=== PATIENT | female | born 1945 | race Caucasian/White ===

== ENCOUNTER 2017-10-12 15:16 | Inpatient (IN) ==
--- NOTE | 2017-10-12 15:49 | Emergency Department Note ---
Disposition Clinical Impression: Acute kidney injury superimposed on chronic kidney disease Urinary tract infection Qualifiers: Urinary tract infection type: acute cystitis Hematuria presence: with hematuria Qualified Code(s): N30.01 - Acute cystitis with hematuria Altered mental status Qualifiers: Altered mental status type: unspecified Qualified Code(s): R41.82 - Altered mental status, unspecified Disposition: Admitted As Inpatient Condition: Fair Referrals: Josephine Haywood, [employer] [Primary Care Provider] - Forms: ED Satisfaction Letter, Work/School Release Time of Disposition: 17:50 General Adult HPI - General Chief complaint: ED General Medical Stated complaint: General illness Time Seen by Provider: 10/12/17 15:28 Source: EMS Limitations: physical limitation Nursing Notes Reviewed: Yes Vital Signs Reviewed: Yes - History of Present Illness HPI Narrative: 72-year-old female is brought by EMS for concerns of failure to thrive by family members. Family members had contacted EMS because the patient was found to have laid on the couch for the past really days without moving. According to the patient's nurse, the patient was found lying in her own urine. Upon her arrival, she is very disheveled and unkempt. She does complain of some worsening confusion over the course of the past 3 days as well. She complains of some suprapubic abdominal discomfort but denies any urinary symptoms or fever /chills. She denies any chest pain or shortness of breath. She denies any falls or trauma. Onset (ago): day(s) (3) Location: abdomen Pain Scale: 5 Quality: aching, dull Improves with: nothing Worsens with: nothing Associated symptoms: Reports: confusion. Denies: chest pain, cough, fever/ chills, nausea/vomiting, shortness of breath Treatments Prior to Arrival: none - Related Data Home Medications Medication Instructions Recorded Confirmed Aspirin Enteric Coated [Aspirin EC] 81 mg PO DAILY 02/19/15 05/31/16 Budesonide/Formoterol 160/4.5 2 puff IH BID 02/19/15 05/31/16 [Symbicort] CloNIDine HCl [Kapvay] 0.1 mg PO TID 02/19/15 05/31/16 Losartan [Cozaar] 100 mg PO DAILY 02/19/15 05/31/16 clonazePAM [Clonazepam] 0.5 mg PO BID PRN 02/19/15 05/31/16 Ventolin Hfa 2 inh PO Q4H PRN 02/28/16 05/31/16 Previous Rx's Medication Instructions Recorded Ipratropium/Albuterol Neb [Duoneb] 3 ml IH QIDR 30 Days inhsol 02/21/15 Verapamil ER (24 HR) [Calan SR] 180 mg PO HS #0 02/21/15 Allergies Allergy/AdvReac Type Severity Reaction Status Date / Time No Known Allergies Allergy Verified 10/24/15 11:07 All systems ED: reviewed and negative except as stated. Constitutional: Denies: fever, chills, weakness, weight change Eyes: Denies: eye pain, eye discharge, vision change ENT ED: Denies: ear pain, throat pain, dental pain, hearing loss, epistaxis, congestion, dysphagia Cardiovascular: Denies: chest pain, palpitations, dyspnea on exertion, edema, syncope Respiratory: Denies: cough, dyspnea, wheezes, hemoptysis, stridor Gastrointestinal: Reports: as per HPI, abdominal pain. Denies: nausea, vomiting , diarrhea, constipation, hematemesis, melena, hematochezia Genitourinary: Denies: dysuria, frequency, hematuria, discharge Musculoskeletal: Denies: back pain, neck pain, arthralgia, myalgia Integumentary: Denies: rash, abrasion, lesions Neurological: Denies: headache, weakness, numbness, paresthesias, confusion, abnormal gait, vertigo Psychiatric: Denies: anxiety, depression, suicidal thoughts, homicidal thoughts , auditory hallucinations, visual hallucinations Endocrine: Denies: fatigue Hematological/Lymphatic: Denies: easy bleeding, easy bruising Allergic/Immunologic: Denies: facial swelling, urticaria Past Medical History - Past Medical History Attestation: Yes The following information was validated with the patient. Source: patient, nursing notes reviewed Medical history: Reports: COPD, coronary artery disease, hypertension, renal disease, other Surgical history: Reports: cholecystectomy Psychiatric history: Reports: no psych history TRAFFIC MANAGER history: Reports: no TRAFFIC MANAGER history - Social History Smoking Status: Current every day smoker Smokeless Tobacco Status: No Alcohol use: Reports: none Drug use: Reports: none Physical Exam - General Limitations: physical limitation General appearance: alert, in no apparent distress - Head Head exam: atraumatic, normocephalic, normal inspection - Eye Eye exam: Present: normal appearance, PERRL, EOMI. Absent: nystagmus - ENT ENT exam: mucous membranes dry - Neck Neck exam: Present: normal inspection, full ROM, trachea midline - Chest Chest inspection: Present: normal inspection, symmetric chest wall rise - Respiratory Respiratory exam: Present: normal lung sounds bilaterally. Absent: respiratory distress, wheezes, stridor, accessory muscle use, prolonged expiratory phase - Cardiovascular Cardiovascular exam: Present: regular rate, normal rhythm, normal heart sounds - Abdominal Exam Abdominal exam: Present: soft, tenderness, normal bowel sounds. Absent: distention, guarding, rebound, rigidity Abdominal tenderness: Present: suprapubic, mild - Extremities Exam Extremities exam: Present: normal inspection, full ROM. Absent: tenderness, pedal edema - Neurological Exam Neurological exam: Present: alert, oriented X3 - Psychiatric Psychiatric exam: Present: normal affect, normal mood - Skin Skin exam: Present: warm, dry, intact, normal color Course Course Narrative: 087: I spoke with Dr. Smith of the hospital service who has agreed to accept the patient for further evaluation of her nitrite positive urinary tract infection, and altered mental status along with acute kidney injury. I discussed this plan with Dr. De La Torre, ED attending. He has had a [id number] evaluation with patient, reviewed her laboratory and radiology workup, and agrees with this plan. Vital Signs Temperature 97.5 F L 10/12/17 15:24 Pulse Rate 97 10/12/17 15:24 Respiratory Rate 20 10/12/17 15:24 Blood Pressure 143/59 10/12/17 15:24 O2 Sat by Pulse Oximetry 98 10/12/17 15:24 Temperature 97.5 F L 10/12/17 15:24 Pulse Rate 97 10/12/17 15:24 Respiratory Rate 20 10/12/17 15:24 Blood Pressure 143/59 10/12/17 15:24 O2 Sat by Pulse Oximetry 98 10/12/17 15:24 Oxygen Delivery Oxygen Delivery Nasal Cannula Medical Decision Making - Medical Records Medical records reviewed: Yes I reviewed the patient's medical records. - Lab Data Lab results reviewed: Yes I reviewed the patient's lab results. Lab results narrative: Laboratory Last Values WBC 13.9 K/mcL (4.3-11.1) H 10/12/17 16:10 RBC 5.34 M/mcL (3.82-4.97) H 10/12/17 16:10 Hgb 15.5 g/dL (11.5-15.4) H 10/12/17 16:10 Hct 48.6 % (35.3-44.9) H 10/12/17 16:10 MCV 91.0 fL (83.0-100.0) 10/12/17 16:10 MCH 29.0 pg (28.0-33.3) 10/12/17 16:10 MCHC 31.9 g/dL (31.6-35.5) 10/12/17 16:10 RDW 14.4 % (11.5-14.5) 10/12/17 16:10 Plt Count 366 K/mcL (140-400) 10/12/17 16:10 MPV 10.3 fL (9.4-12.4) 10/12/17 16:10 Seg Neutrophils % 74.0 % 10/12/17 16:10 Band Neutrophils % 10.0 % (0-4) H 10/12/17 16:10 Lymphocytes % 14.0 % 10/12/17 16:10 Monocytes % 2.0 % 10/12/17 16:10 Neutrophils # 11.7 K/mcL (1.6-8.9) H 10/12/17 16:10 Lymphocytes # 2.0 K/mcL (0.6-4.6) 10/12/17 16:10 Monocytes # 0.3 K/mcL (0.0-1.3) 10/12/17 16:10 Platelet Estimate Normal (Normal) 10/12/17 16:10 PT 12.8 Seconds (9.4-12.1) H 10/12/17 16:10 INR 1.1 10/12/17 16:10 APTT 30.8 Seconds (26.0-36.0) 10/12/17 16:10 Sodium 141 mEq/L (136-145) 10/12/17 16:10 Potassium 3.5 mEq/L (3.5-5.1) 10/12/17 16:10 Chloride 100 mEq/L (98-107) 10/12/17 16:10 Carbon Dioxide 28 mEq/L (23-29) 10/12/17 16:10 BUN 71 mg/dL (8-23) H 10/12/17 16:10 Creatinine 1.74 mg/dL (0.60-1.20) H 10/12/17 16:10 Est GFR ( Amer) 35 (> 60) L 10/12/17 16:10 Est GFR (Non-Af Amer) 29 (> 60) L 10/12/17 16:10 BUN/Creatinine Ratio 41 (6-26) H 10/12/17 16:10 Glucose 113 mg/dL (70-105) H 10/12/17 16:10 Calculated Osmolality 314 (280-300) H 10/12/17 16:10 Calcium 11.5 mg/dL (8.6-10.3) H 10/12/17 16:10 Total Bilirubin 0.3 mg/dL (0.3-1.0) 10/12/17 16:10 Direct Bilirubin 0.2 mg/dL (0.0-0.2) 10/12/17 16:10 Indirect Bilirubin 0.1 mg/dL (0.0-1.2) 10/12/17 16:10 AST 32 Units/L (13-39) 10/12/17 16:10 ALT 40 Units/L (7-52) 10/12/17 16:10 Alkaline Phosphatase 137 Units/L (34-104) H 10/12/17 16:10 Ammonia 37 mcmol/L (16-53) 10/12/17 16:10 Troponin I < 0.03 ng/mL (< 0.04) 10/12/17 16:10 Serum Total Protein 8.3 g/dL (6.4-8.9) 10/12/17 16:10 Albumin 4.2 g/dL (3.5-5.7) 10/12/17 16:10 Globulin 4.1 g/dL (2.4-3.5) H 10/12/17 16:10 Albumin/Globulin Ratio 1.0 (1.1-2.2) L 10/12/17 16:10 Lipase 29 Units/L (11-82) 10/12/17 16:10 Urine Color Yellow (Yellow) 10/12/17 17:19 Urine Clarity Turbid (Clear) A 10/12/17 17:19 Urine pH 5.5 pH Units (5.0-8.0) 10/12/17 17:19 Ur Specific Bradley 1.018 (1.010-1.025) 10/12/17 17:19 Urine Protein 30 mg/dL (Neg-Trace) H 10/12/17 17:19 Urine Glucose (UA) Normal mg/dL (Normal) 10/12/17 17:19 Urine Ketones Negative mg/dL (Negative) 10/12/17 17:19 Urine Blood Large (Negative) H 10/12/17 17:19 Urine Nitrite Positive (Negative) A 10/12/17 17:19 Urine Bilirubin Negative (Negative) 10/12/17 17:19 Urine Urobilinogen Normal mg/dL (Normal) 10/12/17 17:19 Ur Leukocyte Esterase Large (Negative) H 10/12/17 17:19 Urine Microscopic RBC 50-100 per hpf (0-3) H 10/12/17 17:19 Urine Microscopic WBC TNTC per hpf (0-3) H 10/12/17 17:19 Ur Squamous Epith Cells Many per lpf (None-Few) H 10/12/17 17:19 Urine Bacteria Many per hpf (None-Few) H 10/12/17 17:19 Hyaline Casts None Seen per lpf (None-Few) 10/12/17 17:19 Ur Culture Indicated? NO. (NO) A 10/12/17 17:19 Urine Opiates Screen Negative ng/mL (Detmwo=975) 10/12/17 15:53 Ur Barbiturates Screen Negative ng/mL (Wkvknt=237) 10/12/17 15:53 Ur Phencyclidine Scrn Negative ng/mL (Cutoff=25) 10/12/17 15:53 Ur Amphetamines Screen Negative ng/mL (Ezeilj=8887) 10/12/17 15:53 U Benzodiazepines Scrn Negative ng/mL (Oudnrt=493) 10/12/17 15:53 Urine Cocaine Screen Negative ng/mL (Cutoff= 300) 10/12/17 15:53 U Marijuana (THC) Screen Negative ng/mL (Cutoff = 50) 10/12/17 15:53 Ur Drug Screen Interp See Below 10/12/17 15:53 Ethyl Alcohol < 10 mg/dL (Less than 10) 10/12/17 16:10 Result diagrams: 10/12/17 16:10 10/12/17 16:10 Lab Results 10/12/17 10/12/17 10/12/17 Range/Units 15:53 16:10 16:10 WBC 13.9 H (4.3-11.1) K/mcL RBC 5.34 H (3.82-4.97) M/mcL Hgb 15.5 H (11.5-15.4) g/dL Hct 48.6 H (35.3-44.9) % MCV 91.0 (83.0-100.0) fL MCH 29.0 (28.0-33.3) pg MCHC 31.9 (31.6-35.5) g/dL RDW 14.4 (11.5-14.5) % Plt Count 366 (140-400) K/mcL MPV 10.3 (9.4-12.4) fL Seg Neutrophils % 74.0 % Band Neutrophils % 10.0 H (0-4) % Lymphocytes % 14.0 % Monocytes % 2.0 % Neutrophils # 11.7 H (1.6-8.9) K/mcL Lymphocytes # 2.0 (0.6-4.6) K/mcL Monocytes # 0.3 (0.0-1.3) K/mcL Platelet Estimate Normal (Normal) PT 12.8 H (9.4-12.1) Seconds INR 1.1 APTT 30.8 (26.0-36.0) Seconds Sodium (136-145) mEq/L Potassium (3.5-5.1) mEq/L Chloride (98-107) mEq/L Carbon Dioxide (23-29) mEq/L BUN (8-23) mg/dL Creatinine (0.60-1.20) mg/dL Est GFR ( Amer) (> 60) Est GFR (Non-Af Amer) (> 60) BUN/Creatinine Ratio (6-26) Glucose (70-105) mg/dL Calculated Osmolality (280-300) Calcium (8.6-10.3) mg/dL Total Bilirubin (0.3-1.0) mg/dL Direct Bilirubin (0.0-0.2) mg/dL Indirect Bilirubin (0.0-1.2) mg/dL AST (13-39) Units/L ALT (7-52) Units/L Alkaline Phosphatase (34-104) Units/L Ammonia (16-53) mcmol/L Troponin I (< 0.04) ng/mL Serum Total Protein (6.4-8.9) g/dL Albumin (3.5-5.7) g/dL Globulin (2.4-3.5) g/dL Albumin/Globulin Ratio (1.1-2.2) Lipase (11-82) Units/L Urine Color (Yellow) Urine Clarity (Clear) Urine pH (5.0-8.0) pH Units Ur Specific Bradley (1.010-1.025) Urine Protein (Neg-Trace) mg/dL Urine Glucose (UA) (Normal) mg/dL Urine Ketones (Negative) mg/dL Urine Blood (Negative) Urine Nitrite (Negative) Urine Bilirubin (Negative) Urine Urobilinogen (Normal) mg/dL Ur Leukocyte Esterase (Negative) Urine Microscopic RBC (0-3) per hpf Urine Microscopic WBC (0-3) per hpf Ur Squamous Epith Cells (None-Few) per lpf Urine Bacteria (None-Few) per hpf Hyaline Casts (None-Few) per lpf Ur Culture Indicated? (NO) Urine Opiates Screen Negative (Nbtbxf=293) ng/mL Ur Barbiturates Screen Negative (Bxtchm=480) ng/mL Ur Phencyclidine Scrn Negative (Cutoff=25) ng/mL Ur Amphetamines Screen Negative (Kavbmb=2868) ng/mL U Benzodiazepines Scrn Negative (Efgxyk=632) ng/mL Urine Cocaine Screen Negative (Cutoff= 300) ng/mL U Marijuana (THC) Screen Negative (Cutoff = 50) ng/mL Ur Drug Screen Interp See Below Ethyl Alcohol (Less than 10) mg/dL 10/12/17 10/12/17 10/12/17 Range/Units 16:10 16:10 16:10 WBC (4.3-11.1) K/mcL RBC (3.82-4.97) M/mcL Hgb (11.5-15.4) g/dL Hct (35.3-44.9) % MCV (83.0-100.0) fL MCH (28.0-33.3) pg MCHC (31.6-35.5) g/dL RDW (11.5-14.5) % Plt Count (140-400) K/mcL MPV (9.4-12.4) fL Seg Neutrophils % % Band Neutrophils % (0-4) % Lymphocytes % % Monocytes % % Neutrophils # (1.6-8.9) K/mcL Lymphocytes # (0.6-4.6) K/mcL Monocytes # (0.0-1.3) K/mcL Platelet Estimate (Normal) PT (9.4-12.1) Seconds INR APTT (26.0-36.0) Seconds Sodium 141 (136-145) mEq/L Potassium 3.5 (3.5-5.1) mEq/L Chloride 100 (98-107) mEq/L Carbon Dioxide 28 (23-29) mEq/L BUN 71 H (8-23) mg/dL Creatinine 1.74 H (0.60-1.20) mg/dL Est GFR ( Amer) 35 L (> 60) Est GFR (Non-Af Amer) 29 L (> 60) BUN/Creatinine Ratio 41 H (6-26) Glucose 113 H (70-105) mg/dL Calculated Osmolality 314 H (280-300) Calcium 11.5 H (8.6-10.3) mg/dL Total Bilirubin 0.3 0.4 (0.3-1.0) mg/dL Direct Bilirubin 0.2 (0.0-0.2) mg/dL Indirect Bilirubin 0.1 (0.0-1.2) mg/dL AST 32 32 (13-39) Units/L ALT 40 41 (7-52) Units/L Alkaline Phosphatase 137 H 135 H (34-104) Units/L Ammonia 37 (16-53) mcmol/L Troponin I < 0.03 < 0.03 (< 0.04) ng/mL Serum Total Protein 8.3 8.3 (6.4-8.9) g/dL Albumin 4.2 4.2 (3.5-5.7) g/dL Globulin 4.1 H 4.1 H (2.4-3.5) g/dL Albumin/Globulin Ratio 1.0 L 1.0 L (1.1-2.2) Lipase 29 (11-82) Units/L Urine Color (Yellow) Urine Clarity (Clear) Urine pH (5.0-8.0) pH Units Ur Specific Bradley (1.010-1.025) Urine Protein (Neg-Trace) mg/dL Urine Glucose (UA) (Normal) mg/dL Urine Ketones (Negative) mg/dL Urine Blood (Negative) Urine Nitrite (Negative) Urine Bilirubin (Negative) Urine Urobilinogen (Normal) mg/dL Ur Leukocyte Esterase (Negative) Urine Microscopic RBC (0-3) per hpf Urine Microscopic WBC (0-3) per hpf Ur Squamous Epith Cells (None-Few) per lpf Urine Bacteria (None-Few) per hpf Hyaline Casts (None-Few) per lpf Ur Culture Indicated? (NO) Urine Opiates Screen (Xuamjl=077) ng/mL Ur Barbiturates Screen (Frxvif=708) ng/mL Ur Phencyclidine Scrn (Cutoff=25) ng/mL Ur Amphetamines Screen (Ivnriz=9081) ng/mL U Benzodiazepines Scrn (Ycbbmv=332) ng/mL Urine Cocaine Screen (Cutoff= 300) ng/mL U Marijuana (THC) Screen (Cutoff = 50) ng/mL Ur Drug Screen Interp Ethyl Alcohol < 10 (Less than 10) mg/dL 10/12/17 Range/Units 17:19 WBC (4.3-11.1) K/mcL RBC (3.82-4.97) M/mcL Hgb (11.5-15.4) g/dL Hct (35.3-44.9) % MCV (83.0-100.0) fL MCH (28.0-33.3) pg MCHC (31.6-35.5) g/dL RDW (11.5-14.5) % Plt Count (140-400) K/mcL MPV (9.4-12.4) fL Seg Neutrophils % % Band Neutrophils % (0-4) % Lymphocytes % % Monocytes % % Neutrophils # (1.6-8.9) K/mcL Lymphocytes # (0.6-4.6) K/mcL Monocytes # (0.0-1.3) K/mcL Platelet Estimate (Normal) PT (9.4-12.1) Seconds INR APTT (26.0-36.0) Seconds Sodium (136-145) mEq/L Potassium (3.5-5.1) mEq/L Chloride (98-107) mEq/L Carbon Dioxide (23-29) mEq/L BUN (8-23) mg/dL Creatinine (0.60-1.20) mg/dL Est GFR ( Amer) (> 60) Est GFR (Non-Af Amer) (> 60) BUN/Creatinine Ratio (6-26) Glucose (70-105) mg/dL Calculated Osmolality (280-300) Calcium (8.6-10.3) mg/dL Total Bilirubin (0.3-1.0) mg/dL Direct Bilirubin (0.0-0.2) mg/dL Indirect Bilirubin (0.0-1.2) mg/dL AST (13-39) Units/L ALT (7-52) Units/L Alkaline Phosphatase (34-104) Units/L Ammonia (16-53) mcmol/L Troponin I (< 0.04) ng/mL Serum Total Protein (6.4-8.9) g/dL Albumin (3.5-5.7) g/dL Globulin (2.4-3.5) g/dL Albumin/Globulin Ratio (1.1-2.2) Lipase (11-82) Units/L Urine Color Yellow (Yellow) Urine Clarity Turbid A (Clear) Urine pH 5.5 (5.0-8.0) pH Units Ur Specific Bradley 1.018 (1.010-1.025) Urine Protein 30 H (Neg-Trace) mg/dL Urine Glucose (UA) Normal (Normal) mg/dL Urine Ketones Negative (Negative) mg/dL Urine Blood Large H (Negative) Urine Nitrite Positive A (Negative) Urine Bilirubin Negative (Negative) Urine Urobilinogen Normal (Normal) mg/dL Ur Leukocyte Esterase Large H (Negative) Urine Microscopic RBC 50-100 H (0-3) per hpf Urine Microscopic WBC TNTC H (0-3) per hpf Ur Squamous Epith Cells Many H (None-Few) per lpf Urine Bacteria Many H (None-Few) per hpf Hyaline Casts None Seen (None-Few) per lpf Ur Culture Indicated? NO. A (NO) Urine Opiates Screen (Vodwwt=393) ng/mL Ur Barbiturates Screen (Mvwxgn=865) ng/mL Ur Phencyclidine Scrn (Cutoff=25) ng/mL Ur Amphetamines Screen (Sayeca=9172) ng/mL U Benzodiazepines Scrn (Uraznf=020) ng/mL Urine Cocaine Screen (Cutoff= 300) ng/mL U Marijuana (THC) Screen (Cutoff = 50) ng/mL Ur Drug Screen Interp Ethyl Alcohol (Less than 10) mg/dL - Radiology Data Radiology results reviewed: Yes I reviewed the patient's radiology results. Chest X-Ray 10/12/17 15:50 IMPRESSION: Clear lungs. No acute abnormality. Mild bullous changes. D/ / Jordan Villegas MD / Jordan Villegas MD Interpreting Provider: Jordan Villegas MD Head CT 10/12/17 15:51 IMPRESSION: No acute intracranial abnormality. Suspected acute right mastoiditis. Minimal cerebral atrophy. No significant ischemic changes. D/ / Jordan Villegas MD / Jordan Villegas MD Interpreting Provider: Jordan Villegas MD - EKG Data EKG #1 EKG attestation: Yes I reviewed and interpreted this EKG. EKG results narrative: EKG reviewed by Dr. De La Torre as well. EKG shows sinus rhythm with first-degree AV block at a rate of 98 beats per minute. WA interval 230, QRS duration 81, QT /QTc interval 3-1/376. No ectopy noted. No ST elevation.
[2017-10-12] MEDS ORDERED: 0.9 % Sodium Chloride 1,000 ML IVC ONE (15:50)
[2017-10-12 16:32] LABS: Hematocrit 48.6 % (35.3-44.9); Hemoglobin 15.5 g/dL (11.5-15.4); Mean Corpuscular HGB Conc 31.9 g/dL (31.6-35.5); Mean Platelet Volume 10.3 fL (9.4-12.4); Platelet Count 366 K/mcL (140-400); Red Blood Count 5.34 M/mcL (3.82-4.97); Red Cell Distribution Width 14.4 % (11.5-14.5)
[2017-10-12 16:36] LABS: Amphetamine Screen,Urine Negative ng/mL (Cutoff=1000); Barbiturate Screen,Urine Negative ng/mL (Cutoff=200); Benzodiazepines Screen,Urine Negative ng/mL (Cutoff=200); Cannabinoid Screen,Urine Negative ng/mL (Cutoff = 50); Cocaine Screen,Urine Negative ng/mL (Cutoff= 300); Opiate Screen,Urine Negative ng/mL (Cutoff=300); Phencyclidine Screen,Urine Negative ng/mL (Cutoff=25)
[2017-10-12 16:45] LABS: INR 1.1; Prothrombin Time 12.8 Seconds (9.4-12.1)
[2017-10-12 16:48] LABS: Activated Partial Thrombo Time 30.8 Seconds (26.0-36.0)
[2017-10-12 16:56] LABS: Troponin I < 0.03 ng/mL (< 0.04)
[2017-10-12 16:57] LABS: Alanine Aminotransferase 41 Units/L (7-52); Albumin 4.2 g/dL (3.5-5.7); Alkaline Phosphatase 135 Units/L (34-104); Aspartate Amino Transferase 32 Units/L (13-39); BUN/Creatinine Ratio 41 (6-26); Bilirubin,Total 0.4 mg/dL (0.3-1.0); Blood Urea Nitrogen 71 mg/dL (8-23); Calcium 11.5 mg/dL (8.6-10.3); Carbon Dioxide 28 mEq/L (23-29); Chloride 100 mEq/L (98-107); Globulin 4.1 g/dL (2.4-3.5); Glucose 113 mg/dL (70-105); Lipase 29 Units/L (11-82); Osmolality,Calculated 314 (280-300); Potassium 3.5 mEq/L (3.5-5.1); Sodium 141 mEq/L (136-145); Total Protein 8.3 g/dL (6.4-8.9); Troponin I < 0.03 ng/mL (< 0.04); eGFR For African Americans 35 (> 60); eGFR For Non-African Americans 29 (> 60)
[2017-10-12 16:58] LABS: Alanine Aminotransferase 40 Units/L (7-52); Albumin 4.2 g/dL (3.5-5.7); Alkaline Phosphatase 137 Units/L (34-104); Aspartate Amino Transferase 32 Units/L (13-39); Bilirubin,Direct 0.2 mg/dL (0.0-0.2); Bilirubin,Indirect 0.1 mg/dL (0.0-1.2); Bilirubin,Total 0.3 mg/dL (0.3-1.0); Ethanol < 10 mg/dL (Less than 10); Globulin 4.1 g/dL (2.4-3.5); Total Protein 8.3 g/dL (6.4-8.9)
[2017-10-12 17:06] LABS: Monocytes # 0.3 K/mcL (0.0-1.3); Neutrophils # 11.7 K/mcL (1.6-8.9)
[2017-10-12 17:07] LABS: Platelet Estimate Normal (Normal)
[2017-10-12 17:28] LABS: Bilirubin,Urine Negative (Negative); Blood,Urine Large (Negative); Clarity,Urine Turbid (Clear); Color,Urine Yellow (Yellow); Glucose,Urine (UA) Normal (Normal); Ketones,Urine Negative (Negative); Leukocyte Esterase,Urine Large (Negative); Nitrite,Urine Positive (Negative); PH,Urine 5.5 pH Units (5.0-8.0); Protein,Urine 30 mg/dL (Neg-Trace); Specific Gravity,Urine 1.018 (1.010-1.025); Urobilinogen,Urine Normal (Normal)
[2017-10-12 17:31] LABS: Bacteria,Urine Many per hpf (None-Few); Hyaline Casts,Urine None Seen per lpf (None-Few); RBC,Urine 50-100 per hpf (0-3); Squamous Epithelial Cell,Urine Many per lpf (None-Few); WBC,Urine TNTC per hpf (0-3)
[2017-10-12] MEDS ORDERED: cefTRIAXone 1,000 MG in 0.9 % Sodium Chloride Mini Bag 100 ML IVPB ONE (17:35)
--- NOTE | 2017-10-12 18:25 | Emergency Department Note ---
Disposition Clinical Impression: Acute kidney injury superimposed on chronic kidney disease Urinary tract infection Qualifiers: Urinary tract infection type: acute cystitis Hematuria presence: with hematuria Qualified Code(s): N30.01 - Acute cystitis with hematuria Altered mental status Qualifiers: Altered mental status type: unspecified Qualified Code(s): R41.82 - Altered mental status, unspecified Disposition: Admitted As Inpatient Condition: Fair General Adult HPI - General Chief complaint: ED General Medical Stated complaint: General illness Time Seen by Provider: 10/12/17 15:28 Source: EMS Limitations: physical limitation Nursing Notes Reviewed: Yes Vital Signs Reviewed: Yes - History of Present Illness Location: abdomen Pain Scale: 2 Quality: aching, dull Improves with: nothing Worsens with: nothing Associated symptoms: Reports: confusion. Denies: chest pain, cough, fever/ chills, nausea/vomiting, shortness of breath Treatments Prior to Arrival: none - Related Data Home Medications Medication Instructions Recorded Confirmed Aspirin Enteric Coated [Aspirin EC] 81 mg PO DAILY 02/19/15 05/31/16 Budesonide/Formoterol 160/4.5 2 puff IH BID 02/19/15 05/31/16 [Symbicort] CloNIDine HCl [Kapvay] 0.1 mg PO TID 02/19/15 05/31/16 Losartan [Cozaar] 100 mg PO DAILY 02/19/15 05/31/16 clonazePAM [Clonazepam] 0.5 mg PO BID PRN 02/19/15 05/31/16 Ventolin Hfa 2 inh PO Q4H PRN 02/28/16 05/31/16 Previous Rx's Medication Instructions Recorded Ipratropium/Albuterol Neb [Duoneb] 3 ml IH QIDR 30 Days inhsol 02/21/15 Verapamil ER (24 HR) [Calan SR] 180 mg PO HS #0 02/21/15 Allergies Allergy/AdvReac Type Severity Reaction Status Date / Time No Known Allergies Allergy Verified 10/24/15 11:07 Constitutional: Denies: fever, chills, weakness, weight change Eyes: Denies: eye pain, eye discharge, vision change ENT ED: Denies: ear pain, throat pain, dental pain, hearing loss, epistaxis, congestion, dysphagia Cardiovascular: Denies: chest pain, palpitations, dyspnea on exertion, edema, syncope Respiratory: Denies: cough, dyspnea, wheezes, hemoptysis, stridor Gastrointestinal: Reports: as per HPI, abdominal pain. Denies: nausea, vomiting , diarrhea, constipation, hematemesis, melena, hematochezia Genitourinary: Denies: dysuria, frequency, hematuria, discharge Musculoskeletal: Denies: back pain, neck pain, arthralgia, myalgia Integumentary: Denies: rash, abrasion, lesions Neurological: Denies: headache, weakness, numbness, paresthesias, confusion, abnormal gait, vertigo Psychiatric: Denies: anxiety, depression, suicidal thoughts, homicidal thoughts , auditory hallucinations, visual hallucinations Endocrine: Denies: fatigue Hematological/Lymphatic: Denies: easy bleeding, easy bruising Allergic/Immunologic: Denies: facial swelling, urticaria Past Medical History - Past Medical History Medical history: Reports: COPD, coronary artery disease, hypertension, renal disease, other Surgical history: Reports: cholecystectomy Psychiatric history: Reports: no psych history 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 - Social History Smoking Status: Current every day smoker Smokeless Tobacco Status: No Alcohol use: Reports: none Drug use: Reports: none Physical Exam - General Limitations: physical limitation General appearance: alert, in no apparent distress Course Vital Signs Temperature 97.5 F L 10/12/17 15:24 Pulse Rate 97 10/12/17 15:24 Respiratory Rate 20 10/12/17 15:24 Blood Pressure 143/59 10/12/17 15:24 O2 Sat by Pulse Oximetry 98 10/12/17 15:24 Temperature 97.5 F L 10/12/17 15:24 Pulse Rate 97 10/12/17 15:24 Respiratory Rate 18 10/12/17 18:17 Blood Pressure 137/69 10/12/17 18:17 O2 Sat by Pulse Oximetry 98 10/12/17 15:24 Oxygen Delivery Oxygen Delivery Room Air Medical Decision Making - Lab Data Result diagrams: 10/12/17 16:10 10/12/17 16:10 Lab Results 10/12/17 10/12/17 10/12/17 Range/Units 15:53 16:10 16:10 WBC 13.9 H (4.3-11.1) K/mcL RBC 5.34 H (3.82-4.97) M/mcL Hgb 15.5 H (11.5-15.4) g/dL Hct 48.6 H (35.3-44.9) % MCV 91.0 (83.0-100.0) fL MCH 29.0 (28.0-33.3) pg MCHC 31.9 (31.6-35.5) g/dL RDW 14.4 (11.5-14.5) % Plt Count 366 (140-400) K/mcL MPV 10.3 (9.4-12.4) fL Seg Neutrophils % 74.0 % Band Neutrophils % 10.0 H (0-4) % Lymphocytes % 14.0 % Monocytes % 2.0 % Neutrophils # 11.7 H (1.6-8.9) K/mcL Lymphocytes # 2.0 (0.6-4.6) K/mcL Monocytes # 0.3 (0.0-1.3) K/mcL Platelet Estimate Normal (Normal) PT 12.8 H (9.4-12.1) Seconds INR 1.1 APTT 30.8 (26.0-36.0) Seconds Sodium (136-145) mEq/L Potassium (3.5-5.1) mEq/L Chloride (98-107) mEq/L Carbon Dioxide (23-29) mEq/L BUN (8-23) mg/dL Creatinine (0.60-1.20) mg/dL Est GFR ( Amer) (> 60) Est GFR (Non-Af Amer) (> 60) BUN/Creatinine Ratio (6-26) Glucose (70-105) mg/dL Calculated Osmolality (280-300) Calcium (8.6-10.3) mg/dL Total Bilirubin (0.3-1.0) mg/dL Direct Bilirubin (0.0-0.2) mg/dL Indirect Bilirubin (0.0-1.2) mg/dL AST (13-39) Units/L ALT (7-52) Units/L Alkaline Phosphatase (34-104) Units/L Ammonia (16-53) mcmol/L Troponin I (< 0.04) ng/mL Serum Total Protein (6.4-8.9) g/dL Albumin (3.5-5.7) g/dL Globulin (2.4-3.5) g/dL Albumin/Globulin Ratio (1.1-2.2) Lipase (11-82) Units/L Urine Color (Yellow) Urine Clarity (Clear) Urine pH (5.0-8.0) pH Units Ur Specific [place] (1.010-1.025) Urine Protein (Neg-Trace) mg/dL Urine Glucose (UA) (Normal) mg/dL Urine Ketones (Negative) mg/dL Urine Blood (Negative) Urine Nitrite (Negative) Urine Bilirubin (Negative) Urine Urobilinogen (Normal) mg/dL Ur Leukocyte Esterase (Negative) Urine Microscopic RBC (0-3) per hpf Urine Microscopic WBC (0-3) per hpf Ur Squamous Epith Cells (None-Few) per lpf Urine Bacteria (None-Few) per hpf Hyaline Casts (None-Few) per lpf Ur Culture Indicated? (NO) Urine Opiates Screen Negative (Nccbej=589) ng/mL Ur Barbiturates Screen Negative (Zlejbw=693) ng/mL Ur Phencyclidine Scrn Negative (Cutoff=25) ng/mL Ur Amphetamines Screen Negative (Cztyzx=7429) ng/mL U Benzodiazepines Scrn Negative (Hmgddf=663) ng/mL Urine Cocaine Screen Negative (Cutoff= 300) ng/mL U Marijuana (THC) Screen Negative (Cutoff = 50) ng/mL Ur Drug Screen Interp See Below Ethyl Alcohol (Less than 10) mg/dL 10/12/17 10/12/17 10/12/17 Range/Units 16:10 16:10 16:10 WBC (4.3-11.1) K/mcL RBC (3.82-4.97) M/mcL Hgb (11.5-15.4) g/dL Hct (35.3-44.9) % MCV (83.0-100.0) fL MCH (28.0-33.3) pg MCHC (31.6-35.5) g/dL RDW (11.5-14.5) % Plt Count (140-400) K/mcL MPV (9.4-12.4) fL Seg Neutrophils % % Band Neutrophils % (0-4) % Lymphocytes % % Monocytes % % Neutrophils # (1.6-8.9) K/mcL Lymphocytes # (0.6-4.6) K/mcL Monocytes # (0.0-1.3) K/mcL Platelet Estimate (Normal) PT (9.4-12.1) Seconds INR APTT (26.0-36.0) Seconds Sodium 141 (136-145) mEq/L Potassium 3.5 (3.5-5.1) mEq/L Chloride 100 (98-107) mEq/L Carbon Dioxide 28 (23-29) mEq/L BUN 71 H (8-23) mg/dL Creatinine 1.74 H (0.60-1.20) mg/dL Est GFR ( Amer) 35 L (> 60) Est GFR (Non-Af Amer) 29 L (> 60) BUN/Creatinine Ratio 41 H (6-26) Glucose 113 H (70-105) mg/dL Calculated Osmolality 314 H (280-300) Calcium 11.5 H (8.6-10.3) mg/dL Total Bilirubin 0.3 0.4 (0.3-1.0) mg/dL Direct Bilirubin 0.2 (0.0-0.2) mg/dL Indirect Bilirubin 0.1 (0.0-1.2) mg/dL AST 32 32 (13-39) Units/L ALT 40 41 (7-52) Units/L Alkaline Phosphatase 137 H 135 H (34-104) Units/L Ammonia 37 (16-53) mcmol/L Troponin I < 0.03 < 0.03 (< 0.04) ng/mL Serum Total Protein 8.3 8.3 (6.4-8.9) g/dL Albumin 4.2 4.2 (3.5-5.7) g/dL Globulin 4.1 H 4.1 H (2.4-3.5) g/dL Albumin/Globulin Ratio 1.0 L 1.0 L (1.1-2.2) Lipase 29 (11-82) Units/L Urine Color (Yellow) Urine Clarity (Clear) Urine pH (5.0-8.0) pH Units Ur Specific [place] (1.010-1.025) Urine Protein (Neg-Trace) mg/dL Urine Glucose (UA) (Normal) mg/dL Urine Ketones (Negative) mg/dL Urine Blood (Negative) Urine Nitrite (Negative) Urine Bilirubin (Negative) Urine Urobilinogen (Normal) mg/dL Ur Leukocyte Esterase (Negative) Urine Microscopic RBC (0-3) per hpf Urine Microscopic WBC (0-3) per hpf Ur Squamous Epith Cells (None-Few) per lpf Urine Bacteria (None-Few) per hpf Hyaline Casts (None-Few) per lpf Ur Culture Indicated? (NO) Urine Opiates Screen (Pbzosg=670) ng/mL Ur Barbiturates Screen (Xnfcil=312) ng/mL Ur Phencyclidine Scrn (Cutoff=25) ng/mL Ur Amphetamines Screen (Eiwdkh=3846) ng/mL U Benzodiazepines Scrn (Oxzdnu=358) ng/mL Urine Cocaine Screen (Cutoff= 300) ng/mL U Marijuana (THC) Screen (Cutoff = 50) ng/mL Ur Drug Screen Interp Ethyl Alcohol < 10 (Less than 10) mg/dL 10/12/17 Range/Units 17:19 WBC (4.3-11.1) K/mcL RBC (3.82-4.97) M/mcL Hgb (11.5-15.4) g/dL Hct (35.3-44.9) % MCV (83.0-100.0) fL MCH (28.0-33.3) pg MCHC (31.6-35.5) g/dL RDW (11.5-14.5) % Plt Count (140-400) K/mcL MPV (9.4-12.4) fL Seg Neutrophils % % Band Neutrophils % (0-4) % Lymphocytes % % Monocytes % % Neutrophils # (1.6-8.9) K/mcL Lymphocytes # (0.6-4.6) K/mcL Monocytes # (0.0-1.3) K/mcL Platelet Estimate (Normal) PT (9.4-12.1) Seconds INR APTT (26.0-36.0) Seconds Sodium (136-145) mEq/L Potassium (3.5-5.1) mEq/L Chloride (98-107) mEq/L Carbon Dioxide (23-29) mEq/L BUN (8-23) mg/dL Creatinine (0.60-1.20) mg/dL Est GFR ( Amer) (> 60) Est GFR (Non-Af Amer) (> 60) BUN/Creatinine Ratio (6-26) Glucose (70-105) mg/dL Calculated Osmolality (280-300) Calcium (8.6-10.3) mg/dL Total Bilirubin (0.3-1.0) mg/dL Direct Bilirubin (0.0-0.2) mg/dL Indirect Bilirubin (0.0-1.2) mg/dL AST (13-39) Units/L ALT (7-52) Units/L Alkaline Phosphatase (34-104) Units/L Ammonia (16-53) mcmol/L Troponin I (< 0.04) ng/mL Serum Total Protein (6.4-8.9) g/dL Albumin (3.5-5.7) g/dL Globulin (2.4-3.5) g/dL Albumin/Globulin Ratio (1.1-2.2) Lipase (11-82) Units/L Urine Color Yellow (Yellow) Urine Clarity Turbid A (Clear) Urine pH 5.5 (5.0-8.0) pH Units Ur Specific [place] 1.018 (1.010-1.025) Urine Protein 30 H (Neg-Trace) mg/dL Urine Glucose (UA) Normal (Normal) mg/dL Urine Ketones Negative (Negative) mg/dL Urine Blood Large H (Negative) Urine Nitrite Positive A (Negative) Urine Bilirubin Negative (Negative) Urine Urobilinogen Normal (Normal) mg/dL Ur Leukocyte Esterase Large H (Negative) Urine Microscopic RBC 50-100 H (0-3) per hpf Urine Microscopic WBC TNTC H (0-3) per hpf Ur Squamous Epith Cells Many H (None-Few) per lpf Urine Bacteria Many H (None-Few) per hpf Hyaline Casts None Seen (None-Few) per lpf Ur Culture Indicated? NO. A (NO) Urine Opiates Screen (Usdxdb=060) ng/mL Ur Barbiturates Screen (Zqflwl=720) ng/mL Ur Phencyclidine Scrn (Cutoff=25) ng/mL Ur Amphetamines Screen (Itsibd=1348) ng/mL U Benzodiazepines Scrn (Rwuzxf=823) ng/mL Urine Cocaine Screen (Cutoff= 300) ng/mL U Marijuana (THC) Screen (Cutoff = 50) ng/mL Ur Drug Screen Interp Ethyl Alcohol (Less than 10) mg/dL Attestation Statement - Attestation Attestation: I, David De La Torre MD, personally evaluated this patient and discussed their management with the midlevel provicer, PAC/PRINTING PLATE SETTER. I reviewed the midlevel provider 's note and agree with the documented findings, medical decision making, and plan of care. 72-year-old female presents to the emergency department with a complaint of generalized weakness for the past 3 days. Family reports that she has been lying on the couch at her home and unable to get up and ambulate around her home for the past 3 days. Patient complains of some pain in her left foot and ankle. She denies injury. She has a history of gout and thinks that maybe this is from her gout. She complains of nausea but no vomiting. She states that she has not been eating or drinking for the past few days. No chest pain or shortness of breath. No cough or fever. No abdominal pain. On examination patient is a well-developed well-nourished well-appearing elderly female in no acute distress. She is alert and oriented 3. There is no cyanosis or diaphoresis. Mucous membranes are dry. Neck is supple with no meningismus. Breath sounds are decreased but equal bilaterally with no rales or wheezes noted. Heart regular rate and rhythm. Abdomen soft and nontender with normal bowel sounds. No gross focal neurological deficits. No pedal edema. Chest x-ray negative. Head CT negative. Labs reviewed. Patient has acute kidney injury with dehydration. Also a urinary tract infection. The hospitalist, Dr. Smith, was consulted and accepted admission of the patient.
[2017-10-12] MEDS ORDERED: Naloxone 0.4 MG/ML INJ IVP PRN (18:31)
--- NOTE | 2017-10-12 18:50 | Internal Med History&Physical ---
Date of Encounter: 10/12/17 Time of Encounter: 18:45 Internal Medicine - H&P: HPI Chief complaint: AMS, left foot pain and suprapubic pain Admitted From: Home Plans for Post Hospital Care: Home History of present illness: Ms. Lau is a 72 year old female with history of COPD, lung mass, CRF, BEH, CKD, gout in left foot, and COPD. patient here with 3 days of confusion, patient family indicated she laid on [place] days and reportedly from ER staff urinated on herself. Neuro check continues to be negative with no focal deficits noted. Patient also complained of suprapubic area pain and urgency. Patient urine positive for leukocytes, large amount of blood, nitrites, and TNTC wbc's. Patient's CT was negative for acute abnormality.Trop was <0.03. Chest x-ray was not negative for acute cardiopulmonary disease, with mild bullous changes. White blood cell count is 13.9. Patient was started on ceftriaxone in the ED and will continue for UTI. Patient also had complaints of left ankle pain, a x-ray was completed, results showed soft tissue swelling and moderate narrowing at the talonavicular joint. Will get uric acid level in am. Apparently patient has a lung mass which was not mentioned on chest x-ray, patient reports gout in the left knee, denies any falls, the patient family reportedly stated she had no follow-up on this. Daughter concerned regarding patient discharge and going home without home health care. 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 Patient stated she does not want to go to the [facility] however would agree to home health care. She stated she has a difficult time taking care of herself and is frequently incontinent of urine. She indicated that she was not able to walk lately, she typically uses a cane. Requested a social service consult. Patient has hx of CKD, but today has CAMRON on CKD, creat was 1.74, and BUN was 71. Na was 141. Will continue gentle IV fluids. Past Med Surg Social Fam HX - Past Medical History Medical history: COPD, coronary artery disease, hypertension, renal disease, other Additional medical history: lung mass, thickening of heart, hpb, heart murmur Psychiatric history: no psych history - Past Surgical History Surgical History: cholecystectomy - Social History Smoking Status: Current every day smoker Smokeless Tobacco Status: No Alcohol use: none Drug use: none - Family History Father Living Status: Internal Medicine - H&P: Meds Aspirin Enteric Coated [Aspirin EC] 81 mg PO DAILY 02/19/15 [History] Budesonide/Formoterol 160/4.5 [Symbicort] 2 puff IH BID 02/19/15 [History] CloNIDine HCl [Kapvay] 0.1 mg PO TID 02/19/15 [History] Losartan [Cozaar] 100 mg PO DAILY 02/19/15 [History] clonazePAM [Clonazepam] 0.5 mg PO BID PRN 02/19/15 [History] Ipratropium/Albuterol Neb [Duoneb] 3 ml IH QIDR 30 Days inhsol 02/21/15 [Rx] Verapamil ER (24 HR) [Calan SR] 180 mg PO HS #0 02/21/15 [Rx] Ventolin Hfa 2 inh PO Q4H PRN 02/28/16 [History] 3 Allergy/AdvReac Type Severity Reaction Status Date / Time No Known Allergies Allergy Verified 10/24/15 11:07 All Systems PM: A 10-system review of systems was performed and is negative for pertinent findings except as documented above in the HPI. - Constitutional Constitutional: fatigue, weakness, no chills, no fever(s), no night sweats - EENT Eyes: no change in vision, no discharge, no pain, no photophobia Ears: no ear discharge, no ear pain, no tinnitus Nose, mouth and throat: no dysphagia, no nasal discharge, no neck pain, no sore throat - Cardiovascular Cardiovascular ROS IM: no chest pain, no diaphoresis, no dyspnea, no lightheadedness, no palpitations, no syncope - Respiratory Respiratory: cough, no dyspnea, no wheezing, no excessive phlegm production - Gastrointestinal Gastrointestinal: abdominal pain (Suprapubic pain), no diarrhea, no hematemesis , no hematochezia, no melena, no nausea, no vomiting - Genitourinary Genitourinary: urinary frequency, urinary incontinence, urinary urgency, no change in urinary stream, no dysuria, no flank pain, no hematuria - Musculoskeletal Musculoskeletal ROS IM: myalgias (Left foot pain), no numbness, no tingling - Integumentary Integumentary IM: no rash, no unusual bruising - Neurological Neurological ROS: no confusion, no convulsions, no focal weakness, no numbness, no tingling, no tremor(s) - Hematologic/Lymphatic Hematologic/Lymphatic: no easy bruising - Constitutional Vitals: Temp Pulse Resp BP Pulse Ox 97.5 F L 97 18 137/69 98 10/12/17 15:24 10/12/17 15:24 10/12/17 18:17 10/12/17 18:17 10/12/17 15:24 General appearance: Present: A&O X 3, answers questions appropriately - Head Head exam: Present: atraumatic, normocephalic - Eye Eye exam: Present: PERRL, conjuntiva pink, sclera anicteric Pupils: Present: PERRL - Neck Neck exam general surgery: Present: supple, trachea midline. Absent: lymphadenopathy - Respiratory Respiratory exam: Present: decreased breath sounds. Absent: accessory muscle use, rales, rhonchi, wheezes - Cardiovascular Cardiovascular exam: Present: RRR, +S1, +S2. Absent: diastolic murmur, gallop, rubs, systolic murmur - GI/Abdominal GI/Abdominal exam: Present: normal bowel sounds, soft, no peritoneal signs. Absent: distended, tenderness - Extremities Exam Extremities exam: Present: pedal edema (left foot/ankle swelling), warm, radial pulses palpable and symmetrical. Absent: calf tenderness, cyanotic - Neurological Exam Neurological exam: Present: CN II-XII intact, oriented X3, no focal deficits. Absent: pronater drift, facial droop, speech deficit - Skin Skin exam: Present: dry, intact Internal Med - H&P Results - Labs CBC & Chem 7: 10/12/17 16:10 10/12/17 16:10 - Assessment and plan (1) Altered mental status Current Visit: Yes Status: Acute Assessment and plan: AMS likely a result of a untreated UTI. Neuro checks q shift Ct of head, negative for acute process Qualifiers: Altered mental status type: unspecified Qualified Code(s): R41.82 - Altered mental status, unspecified (2) Acute kidney injury superimposed on chronic kidney disease Current Visit: Yes Status: Acute Assessment and plan: CAMRON on CKD is likely a result of UTI Continue gentle IVF's Monitor CBC and BMP daily Continue IV ceftriaxone (3) Urinary tract infection Current Visit: Yes Status: Acute Assessment and plan: Continue gentle IVF's Monitor CBC and BMP daily Continue IV ceftriaxone Monitor urinary output Qualifiers: Urinary tract infection type: acute cystitis Hematuria presence: with hematuria Qualified Code(s): N30.01 - Acute cystitis with hematuria (4) Essential hypertension Current Visit: No Status: Chronic Assessment and plan: Bp is uncontrolled Goal is under 140/90 Continue home meds-losartin and verapimil (5) Lung mass Current Visit: No Status: Chronic Assessment and plan: Follow up as outpatient (6) Tobacco abuse Current Visit: No Status: Chronic Assessment and plan: Discussed smoking cessation with patient. Smokes at least 1/2 pack per day. Education to be provided (7) Soft tissue swelling Current Visit: Yes Status: Acute Assessment and plan: Left foot soft tissue swelling. The patient indicates that she has gout in the left foot and has had difficulty moving around at home due to it. Xray showed no fracture. Will get uric acid level in am Consider colchicine if elevated Acetaminophen 650 mg po q4h prn - Time Spent With Patient Total time spent is greater than 50% in coordination of care (as documented) at patient's floor/unit and/or counseling patient: 25 - 35 minutes
[2017-10-12] MEDS: 0.9 % Sodium Chloride 1,000 ML IVC SCH (19:32)
[2017-10-12] MEDS: cloNIDine HCl 0.1 MG TABLET PO SCH (21:49)
[2017-10-12] MEDS: Verapamil ER (24 HR) 180 MG TABLET.ER PO SCH (21:50)
[2017-10-12] MEDS ORDERED: Ibuprofen 600 MG TABLET PO ONE (21:52)
[2017-10-12] MEDS: Budesonide/Formoterol 160/4.5 MDI IH SCH (23:27)
[2017-10-12] MEDS: Ipratropium/Albuterol Neb 3 ML IH SCH (23:27)
[2017-10-13] MEDS: *HR* Heparin 5,000 UNIT/ML VIAL SQ SCH ×2 (05:28→17:07)
[2017-10-13] MEDS ORDERED: cefTRIAXone 2,000 MG in Water for inj. (sterile) 20 ML 20 ML IVP SCH (06:00)
[2017-10-13] MEDS: Ipratropium/Albuterol Neb 3 ML IH SCH ×4 (06:33→22:18)
[2017-10-13 07:20] LABS: Hematocrit 41.8 % (35.3-44.9); Mean Corpuscular HGB Conc 31.3 g/dL (31.6-35.5); Mean Corpuscular Hemoglobin 28.5 pg (28.0-33.3); Mean Corpuscular Volume 90.9 fL (83.0-100.0); Mean Platelet Volume 10.4 fL (9.4-12.4); Platelet Count 286 K/mcL (140-400); Red Cell Distribution Width 14.6 % (11.5-14.5)
[2017-10-13 07:28] LABS: Hemoglobin 13.1 g/dL (11.5-15.4)
[2017-10-13 07:42] LABS: Troponin I < 0.03 ng/mL (< 0.04)
[2017-10-13 07:43] LABS: BUN/Creatinine Ratio 47 (6-26); Blood Urea Nitrogen 61 mg/dL (8-23); Calcium 9.9 mg/dL (8.6-10.3); Carbon Dioxide 27 mEq/L (23-29); Chloride 109 mEq/L (98-107); Chol/HDL Ratio 3.3 (0-4.9); Cholesterol 151 mg/dL (< 200); Glucose 111 mg/dL (70-105); HDL Cholesterol 46 mg/dL (40-59); LDL Cholesterol,Calculated 82 mg/dL (0-99); Magnesium 2.2 mg/dL (1.6-2.6); Osmolality,Calculated 320 (280-300); Potassium 3.4 mEq/L (3.5-5.1); Sodium 146 mEq/L (136-145); Triglycerides 113 mg/dL (< 150); eGFR For African Americans 49 (> 60); eGFR For Non-African Americans 40 (> 60)
[2017-10-13 08:13] LABS: Eosinophils # 0.2 K/mcL (0.0-0.6); Lymphocytes # 2.7 K/mcL (0.6-4.6); Monocytes # 0.6 K/mcL (0.0-1.3); Neutrophils # 6.8 K/mcL (1.6-8.9); Platelet Estimate Normal (Normal)
[2017-10-13] MEDS: cloNIDine HCl 0.1 MG TABLET PO SCH ×3 (08:21→20:40)
[2017-10-13] MEDS: Aspirin Enteric Coated 81 MG Tablet PO SCH (08:22)
[2017-10-13] MEDS: Budesonide/Formoterol 160/4.5 MDI IH SCH ×2 (09:50→22:18)
[2017-10-13] MEDS: 0.9 % Sodium Chloride 1,000 ML IVC SCH (10:57)
--- NOTE | 2017-10-13 12:23 | Internal Med Progress Note ---
Date of Encounter: 10/13/17 Time of Encounter: 12:19 - Assessment and plan (1) Acute kidney injury superimposed on chronic kidney disease Current Visit: Yes Status: Acute Assessment and plan: Improved with IVF hydration Avoid nephrotoxins Continue to monitor Chem (2) Urinary tract infection Current Visit: Yes Status: Acute Assessment and plan: folow culture continue ceftriaxone 1g daily Qualifiers: Urinary tract infection type: acute cystitis Hematuria presence: with hematuria Qualified Code(s): N30.01 - Acute cystitis with hematuria (3) CKD (chronic kidney disease) Current Visit: Yes Status: Chronic Assessment and plan: as in CAMRON on CKD Qualifiers: Chronic kidney disease stage: stage 3 (moderate) Qualified Code(s): N18.3 - Chronic kidney disease, stage 3 (moderate) (4) Essential hypertension Current Visit: Yes Status: Chronic Assessment and plan: continue current meds (5) Lung mass Current Visit: Yes Status: Chronic Assessment and plan: follow up as outpatient (6) Tobacco abuse Current Visit: Yes Status: Chronic Assessment and plan: cessation counselling, NRT (7) Encephalopathy acute Current Visit: Yes Status: Resolved Assessment and plan: possibly from CAMRON on CKD, UTI Resolved - Time Spent With Patient Total time spent is greater than 50% in coordination of care (as documented) at patient's floor/unit and/or counseling patient: - Subjective Interval history: Seen and examined at the bedside Awake, alert and oriented X3 No new complains Awaiting PTOT eval Urine culture requested - Constitutional Vitals: Temp Pulse Resp BP Pulse Ox 97.5 F L 73 16 115/55 97 10/13/17 11:20 10/13/17 11:20 10/13/17 11:20 10/13/17 11:20 10/13/17 11:20 General appearance: Present: A&O X 3, pleasant, no acute distress, obese, answers questions appropriately - Head Head exam: Present: atraumatic, normocephalic - Eye Eye exam: Present: PERRL, conjuntiva pink, sclera anicteric Pupils: Present: PERRL - Neck Neck exam general surgery: Present: supple, trachea midline. Absent: lymphadenopathy - Respiratory Respiratory exam: Present: CTAB. Absent: accessory muscle use, rales, rhonchi, wheezes - Cardiovascular Cardiovascular exam: Present: RRR, +S1, +S2. Absent: diastolic murmur, gallop, rubs, systolic murmur - GI/Abdominal GI/Abdominal exam: Present: normal bowel sounds, soft, no peritoneal signs. Absent: distended, tenderness - Extremities Exam Extremities exam: Present: warm, radial pulses palpable and symmetrical. Absent : calf tenderness, cyanotic, pedal edema - Neurological Exam Neurological exam: Present: alert, CN II-XII intact, oriented X3, no focal deficits. Absent: pronater drift, facial droop, speech deficit - Skin Skin exam: Present: dry, intact Internal Medicine: Result - Labs CBC & Chem 7: 10/13/17 06:30 10/13/17 06:30 Labs: Short CBC 10/13/17 Range/Units 06:30 WBC 10.3 (4.3-11.1) K/mcL Hgb 13.1 D (11.5-15.4) g/dL Hct 41.8 (35.3-44.9) % Plt Count 286 (140-400) K/mcL Neutrophils # 6.8 (1.6-8.9) K/mcL BMP 10/13/17 06:30 Sodium 146 H Potassium 3.4 L Chloride 109 H Carbon Dioxide 27 BUN 61 H Creatinine 1.30 H Glucose 111 H Calcium 9.9 Cardiac Enzymes 10/13/17 Range/Units 06:30 Troponin I < 0.03 (< 0.04) ng/mL - ABG Interpretation ABG results: PT/INR, D-dimer PT 12.8 Seconds (9.4-12.1) H 10/12/17 16:10 Consult Discharge Plan - Plan Referrals: Josephine Haywood, RAMILA [Primary Care Provider] -
[2017-10-13] MEDS: Acetaminophen 325 MG TABLET PO PRN (17:06)
[2017-10-13] MEDS: Verapamil ER (24 HR) 180 MG TABLET.ER PO SCH (20:40)
[2017-10-13] MEDS ORDERED: *HR* HYDROcodone/Acet 7.5/325 mg TABLET PO ONE (21:37)
[2017-10-14] MEDS: *HR* Heparin 5,000 UNIT/ML VIAL SQ SCH ×2 (05:23→17:05)
[2017-10-14 05:25] LABS: Basophils % 0.1 %; Eosinophils # 0.2 K/mcL (0.0-0.6); Eosinophils % 1.5 %; Hematocrit 40.1 % (35.3-44.9); Hemoglobin 12.4 g/dL (11.5-15.4); Immature Granulocytes % 4.9 % (0-4); Lymphocytes # 1.6 K/mcL (0.6-4.6); Lymphocytes % 15.5 %; Mean Corpuscular HGB Conc 30.9 g/dL (31.6-35.5); Mean Corpuscular Hemoglobin 28.5 pg (28.0-33.3); Mean Corpuscular Volume 92.2 fL (83.0-100.0); Mean Platelet Volume 10.1 fL (9.4-12.4); Monocytes # 0.7 K/mcL (0.0-1.3); Monocytes % 7.2 %; Neutrophils # 7.2 K/mcL (1.6-8.9); Platelet Count 263 K/mcL (140-400); Red Blood Count 4.35 M/mcL (3.82-4.97); Red Cell Distribution Width 14.5 % (11.5-14.5); Segmented Neutrophils % 70.8 %
[2017-10-14 05:34] LABS: Calcium 10.3 mg/dL (8.6-10.3); Potassium 3.5 mEq/L (3.5-5.1)
[2017-10-14] MEDS: Ipratropium/Albuterol Neb 3 ML IH SCH ×4 (05:44→22:43)
[2017-10-14 05:56] LABS: Platelet Estimate Normal (Normal); Reactive Lymphocytes Present (Not Present)
[2017-10-14] MEDS: Acetaminophen 325 MG TABLET PO PRN (06:32)
[2017-10-14] MEDS ORDERED: predniSONE 20 MG TABLET PO ONE (08:23)
[2017-10-14] MEDS: Aspirin Enteric Coated 81 MG Tablet PO SCH (08:54)
[2017-10-14] MEDS: cefTRIAXone 1,000 MG in Water for inj. (sterile) 20 ML 10 ML IVP SCH (08:54)
[2017-10-14] MEDS: cloNIDine HCl 0.1 MG TABLET PO SCH ×3 (08:54→20:47)
[2017-10-14] MEDS: Budesonide/Formoterol 160/4.5 MDI IH SCH ×2 (10:20→22:43)
--- NOTE | 2017-10-14 11:02 | Internal Med Progress Note ---
Date of Encounter: 10/14/17 Time of Encounter: 11:01 - Assessment and plan (1) Podagra Current Visit: Yes Status: Acute Assessment and plan: Patient unable to tolerate NSAIDs due to history of chronic kidney disease with current acute on chronic kidney injury. A KI is improving. We will give steroids short-term as well as allopurinol daily. (2) Acute kidney injury superimposed on chronic kidney disease Current Visit: Yes Status: Acute Assessment and plan: Improved with IVF hydration Avoid nephrotoxins Continue to monitor Chem (3) Urinary tract infection Current Visit: Yes Status: Acute Assessment and plan: Urine culture with gram-negative rods continue ceftriaxone 1g daily- day 3/5 Qualifiers: Urinary tract infection type: acute cystitis Hematuria presence: with hematuria Qualified Code(s): N30.01 - Acute cystitis with hematuria (4) CKD (chronic kidney disease) Current Visit: Yes Status: Chronic Assessment and plan: as in CAMRON on CKD Renal function is back to baseline Encouraged liberal oral intake Qualifiers: Chronic kidney disease stage: stage 3 (moderate) Qualified Code(s): N18.3 - Chronic kidney disease, stage 3 (moderate) (5) Essential hypertension Current Visit: Yes Status: Chronic Assessment and plan: continue current meds (6) Lung mass Current Visit: Yes Status: Chronic Assessment and plan: follow up as outpatient (7) Tobacco abuse Current Visit: Yes Status: Chronic Assessment and plan: cessation counselling, NRT (8) Encephalopathy acute Current Visit: Yes Status: Resolved Assessment and plan: possibly from CAMRON on CKD, UTI Resolved (9) Hypernatremia Current Visit: Yes Status: Acute Assessment and plan: Sodium level 146 Encourage free water intake IVF discontinued Continue to monitor - Time Spent With Patient Total time spent is greater than 50% in coordination of care (as documented) at patient's floor/unit and/or counseling patient: - Subjective Interval history: Seen and examined at the bedside Awake, alert and oriented X3 Complaints of left foot pain Evaluation by physical and occupational therapy is pending - Constitutional Vitals: Temp Pulse Resp BP Pulse Ox 99.3 F 76 18 136/78 95 10/14/17 06:57 10/14/17 06:57 10/14/17 10:23 10/14/17 06:57 10/14/17 10:23 General appearance: Present: A&O X 3, pleasant, no acute distress, obese, answers questions appropriately - Head Head exam: Present: atraumatic, normocephalic - Eye Eye exam: Present: PERRL, conjuntiva pink, sclera anicteric Pupils: Present: PERRL - Neck Neck exam general surgery: Present: supple, trachea midline. Absent: lymphadenopathy - Respiratory Respiratory exam: Present: CTAB. Absent: accessory muscle use, rales, rhonchi, wheezes - Cardiovascular Cardiovascular exam: Present: RRR, +S1, +S2. Absent: diastolic murmur, gallop, rubs, systolic murmur - GI/Abdominal GI/Abdominal exam: Present: normal bowel sounds, soft, no peritoneal signs. Absent: distended, tenderness - Extremities Exam Extremities exam: Present: warm, radial pulses palpable and symmetrical. Absent : calf tenderness, cyanotic, pedal edema Additional comments: L big toe redness and tenderness - Neurological Exam Neurological exam: Present: alert, CN II-XII intact, oriented X3, no focal deficits. Absent: pronater drift, facial droop, speech deficit - Skin Skin exam: Present: dry, intact Internal Medicine: Result - Labs CBC & Chem 7: 10/14/17 04:45 10/14/17 04:45 Labs: Short CBC 10/14/17 Range/Units 04:45 WBC 10.1 (4.3-11.1) K/mcL Hgb 12.4 (11.5-15.4) g/dL Hct 40.1 (35.3-44.9) % Plt Count 263 (140-400) K/mcL Neutrophils # 7.2 (1.6-8.9) K/mcL BMP 10/14/17 04:45 Sodium 146 H Potassium 3.5 Chloride 109 H Carbon Dioxide 31 H BUN 35 H Creatinine 1.11 Glucose 108 H Calcium 10.3 - ABG Interpretation ABG results: PT/INR, D-dimer PT 12.8 Seconds (9.4-12.1) H 10/12/17 16:10 Consult Discharge Plan - Plan Referrals: Josephine Haywood, ACOUSTIC ENGINEER [Primary Care Provider] -
--- NOTE | 2017-10-14 18:08 | Electrocardiograph Report ---
[address] [address] Test Date: 2017-10-12 Pat Name: Eva Lau Department: 104 Room: 2A Gender: F Kinesiotherapist: : 1945 Requested By: Westley Olson Order Number: [id number] Reading MD: Jonnathan Mao Measurements Intervals [place] Rate: 98 P: 79 DE: 230 QRS: -37 QRSD: 81 T: 44 QT: 321 QTc: 376 Interpretive Statements SINUS RHYTHM WITH FIRST DEGREE AV BLOCK LEFT ATRIAL ENLARGEMENT MARKED LEFT AXIS DEVIATION Poor R wave progression BASELINE ARTIFACT Electronically Signed On 10-14-2017 18:07:06 EDT by Jonnathan Mao
[2017-10-14] MEDS: Verapamil ER (24 HR) 180 MG TABLET.ER PO SCH (20:47)
[2017-10-15] MEDS: Ipratropium/Albuterol Neb 3 ML IH SCH ×3 (04:03→16:00)
[2017-10-15] MEDS: *HR* Heparin 5,000 UNIT/ML VIAL SQ SCH (05:59)
[2017-10-15] MEDS: cloNIDine HCl 0.1 MG TABLET PO SCH (07:50)
[2017-10-15] MEDS: Aspirin Enteric Coated 81 MG Tablet PO SCH (07:50)
[2017-10-15] MEDS: cefTRIAXone 1,000 MG in Water for inj. (sterile) 20 ML 10 ML IVP SCH (07:51)
[2017-10-15] MEDS ORDERED: predniSONE 20 MG TABLET PO SCH (09:00)
--- NOTE | 2017-10-15 10:10 | Discharge Summary ---
- NOTES TO OUTPATIENT PROVIDER Notes to Outpatient Provider: Follow-up with primary care for gout pain after prednisone course Date of Encounter: 10/15/17 Time of Encounter: 10:06 - Discharge Diagnosis (1) Acute kidney injury superimposed on chronic kidney disease Priority: Primary Status: Acute (2) Hypernatremia Priority: Secondary Status: Acute (3) Podagra Priority: Secondary Status: Acute Hospital course: Ms. Lau is a 72 year old female with past medical history of COPD, lung mass , CKD and gout brought in by family for confusion found to have a UTI and CAMRON on CKD. CT head was negative and mental status recovered shortly after admission. She also complained of left foot pain with noted soft tissue swelling and was treated with Prednisone and Tylenol. Pain had improved and patient is progressing towards baseline. Evaluated by PT who recommended inpatient rehab, however patient only wants to go home. Will discharge for follow up with PMD for home health care. Discharge discussed with: patient, nurse, social work - Time Spent with Patient Total time spent providing and/or coordinating discharge services: Greater than 30 minutes - Discharge Medications Prescriptions: Cefdinir [Omnicef] 300 mg PO BID 1 Days #2 capsule predniSONE [Prednisone] 50 mg PO DAILY 4 Days #4 tablet Verapamil ER (24 HR) [Calan SR] 180 mg PO HS 30 Days #30 tablet.er Home Medications: Albuterol Sulfate [Ventolin Hfa] 2 puff IH Q4-6H PRN 10/13/17 [History] Budesonide/Formoterol 160/4.5 [Symbicort 160/4.5] 2 puff IH BIDR 10/13/17 [ History] Losartan Potassium [Cozaar] 100 mg PO DAILY 10/13/17 [History] cloNIDine HCl [CloNIDine HCl] 0.1 mg PO TID 10/13/17 [History] Acetaminophen [Tylenol] 650 mg PO Q6HR PRN tablet 10/15/17 [Rx] Allopurinol [Zyloprim 100 MG] 100 mg PO DAILY tablet 10/15/17 [Rx] Aspirin Enteric Coated [Aspirin EC] 81 mg PO DAILY tablet. 10/15/17 [Rx] Cefdinir [Omnicef] 300 mg PO BID 1 Days #2 capsule 10/15/17 [Rx] GuaiFENesin/Dextromethorphan [Robitussin/Dm] 10 ml PO Q6HR PRN udc 10/15/17 [Rx ] Verapamil ER (24 HR) [Calan SR] 180 mg PO HS 30 Days #30 tablet.er 10/15/17 [Rx] predniSONE [Prednisone] 50 mg PO DAILY 4 Days #4 tablet 10/15/17 [Rx] Allergies/Adverse Reactions: 3 Allergy/AdvReac Type Severity Reaction Status Date / Time No Known Allergies Allergy Verified 10/13/17 10:33 Date of admission: 10/12/17 18:42 Primary care physician: Josephine Haywood CNP - Constitutional Vitals: Temp Pulse Resp BP Pulse Ox 97.9 F 55 16 129/73 97 10/15/17 07:20 10/15/17 07:20 10/15/17 07:20 10/15/17 07:20 10/15/17 07:20 General appearance: Present: A&O X 3, pleasant, no acute distress, obese, answers questions appropriately Exam: General: Alert and oriented Skin: Normal color, no rash, no lesions. HEENT: EOMI, pupils equal, round and reactive. Cardiovascular: Regular rate, regular rythm. Lungs:Mild expiratory wheeze b/l. No signs of respiratory distress. Abdomen:Soft, obese, non-tender, no rigidity. Extremities:No deformity, mild tenderness of L. ankle and toe with palpation. Neurological:Normal cognition, no weakness, no numbness. Rest of the physical exam is non contributory - Patient Status Disposition: Home Health Service Functional capacity at discharge: uses cane/walker Overall status at discharge: patient is progressing back to baseline - Discharge Instructions Follow Up With: Josephine Haywood CNP [Primary Care Provider] - - Diet and Activity Activity: as per physical therapy Diet: advance to your usual diet
[2017-10-15 10:54] VITALS: BP 134/72
[2017-10-15] MEDS: Budesonide/Formoterol 160/4.5 MDI IH SCH (10:55)
[2017-10-15] MEDS: Acetaminophen 325 MG TABLET PO PRN (11:16)
--- NOTE | 2017-10-15 14:06 | Physician Discharge Referral ---
Home Health/Hosp Referral Info Transfer to: Home Health Provider in Charge Post Discharge: PCP - Diagnosis (1) Sepsis affecting skin Priority: Primary Status: Acute (2) Acute kidney injury superimposed on chronic kidney disease Priority: Secondary Status: Acute (3) Hypernatremia Priority: Secondary Status: Acute (4) Podagra Priority: Secondary Status: Acute - Respiratory Orders Smoking Cessation: Smoking cessation has been advised. For more information, call the [place] Tobacco Quit Line at 7-088-PGUB-NOW. - Services Needed Following services are medically necessary services: Nursing, Home Health Aide, Physical Therapy, Occupational Therapy - Transfer Medications Prescriptions: Cefdinir [Omnicef] 300 mg PO BID 1 Days #2 capsule predniSONE [Prednisone] 50 mg PO DAILY 4 Days #4 tablet Verapamil ER (24 HR) [Calan SR] 180 mg PO HS 30 Days #30 tablet.er Home Medications: Albuterol Sulfate [Ventolin Hfa] 2 puff IH Q4-6H PRN 10/13/17 [History] Budesonide/Formoterol 160/4.5 [Symbicort 160/4.5] 2 puff IH BIDR 10/13/17 [ History] Losartan Potassium [Cozaar] 100 mg PO DAILY 10/13/17 [History] cloNIDine HCl [CloNIDine HCl] 0.1 mg PO TID 10/13/17 [History] Acetaminophen [Tylenol] 650 mg PO Q6HR PRN tablet 10/15/17 [Rx] Allopurinol [Zyloprim 100 MG] 100 mg PO DAILY tablet 10/15/17 [Rx] Aspirin Enteric Coated [Aspirin EC] 81 mg PO DAILY tablet. 10/15/17 [Rx] Cefdinir [Omnicef] 300 mg PO BID 1 Days #2 capsule 10/15/17 [Rx] GuaiFENesin/Dextromethorphan [Robitussin/Dm] 10 ml PO Q6HR PRN udc 10/15/17 [Rx ] Verapamil ER (24 HR) [Calan SR] 180 mg PO HS 30 Days #30 tablet.er 10/15/17 [Rx] predniSONE [Prednisone] 50 mg PO DAILY 4 Days #4 tablet 10/15/17 [Rx] Allergies/Adverse Reactions: 3 Allergy/AdvReac Type Severity Reaction Status Date / Time No Known Allergies Allergy Verified 10/13/17 10:33 Certification: Further, I certify that my clinical findings support that this patient is homebound (i.e. absences from home require considerable and taxing effort and are for medical reasons or adventism services or infrequently or short duration when for other reasons) because: Homebound Reason: Patient requires assistance of a person or device to safely leave home Attestation: My signature below is to certify that this patient is under my care and that I, or nurse practitioner, or a physician's assistant farm operations manager working with me, has a face-to -face encounter with this patient.
== END 2017-10-15 16:40 | disposition home health service (06) | DRG 689 ==
LOC: EMEROO 15:16 → 2ANU 15:16 → SUATTDRO 18:42 → 2ANU 18:54
PROVIDERS: ADMIT Internal Medicine; ATTEND Internal Medicine